=== PATIENT | female | born 1975 | race Caucasian/White ===

== ENCOUNTER 2017-06-03 11:47 | Day surgery (SDC) | payer MEDICARE ==
[~2017-06-03] VITALS: Ht 154.9 cm; Wt 85.7 kg
[~2017-06-03 11:47] MED LIST: BUSPIRONE15 MG PO; FLAXSEED OIL1000 MG PO; LATUDA120 MG PO; LEVOTHYROXIN25 MC1 PO; LINZESS72 MCG PO; MELATONIN10 M3; NICODERM C21 MG/242; OMEPRAZOLE20 M1 PO; TOPIRAMATE ER100 MG PO; TRAZODONE50 MG PO; [UNRECOGNIZED DRUG - OTHER] PO; [UNRECOGNIZED DRUG - OTHER] PO
[2017-06-03 15:50] VITALS: BP 127/90
== END 2017-06-03 15:45 | disposition home or self-care (01) ==
LOC: ENDO 11:47 → ORM 14:45 → ENDO 14:45
PROVIDERS: ATTEND Internal Medicine Gastroenterology
PROC: 0DBP8ZX Excision of Rectum, Via Natural or Artificial Opening Endoscopic, Diagnostic (ICD-10-PCS; principal; 2017-06-03)
PROC: 0DB48ZX Excision of Esophagogastric Junction, Via Natural or Artificial Opening Endoscopic, Diagnostic (ICD-10-PCS; 2017-06-03)
PROC: 0D758ZZ Dilation of Esophagus, Via Natural or Artificial Opening Endoscopic (ICD-10-PCS; 2017-06-03)
DX: K59.00 Constipation, unspecified (principal); K21.0 Gastro-esophageal reflux disease with esophagitis; K22.2 Esophageal obstruction; K64.4 Residual hemorrhoidal skin tags; K62.1 Rectal polyp; K64.8 Other hemorrhoids; E03.9 Hypothyroidism, unspecified; F31.9 Bipolar disorder, unspecified; K29.70 Gastritis, unspecified, without bleeding; K44.9 Diaphragmatic hernia without obstruction or gangrene